=== PATIENT | female | born 1985 | race Caucasian/White ===

== ENCOUNTER → 2018-12-07 | Outpatient (CLI) | payer BC ==
--- NOTE | 2018-12-07 11:06 | RAD ---
Indication: Thyromegaly TECHNIQUE: Ultrasound thyroid COMPARISON: None FINDINGS: The isthmus measures 3 mm in thickness and is within normal limits. The right thyroid lobe measures 5.0 x 1.7 x 1.3 cm and is homogeneous in echogenicity without discrete nodules. The left thyroid lobe measures 5.1 x 1.7 x 1.3 cm and is homogeneous in echogenicity without discrete nodules. IMPRESSION: No discrete nodules. Electronically signed by: Steve Jones DO (12/07/2018 11:01 AM) [id number]
== END | disposition home or self-care (01) ==
LOC: US 08:34
PROVIDERS: ATTEND Family Medicine
DX: E04.9 Nontoxic goiter, unspecified (principal)
CPT/HCPCS: 76536

== ENCOUNTER → 2019-05-31 | Outpatient (CLI) | payer BC, OTHER ==
--- NOTE | 2019-05-31 09:08 | RAD ---
Examination: Ultrasound pelvis HISTORY: History of irregular periods COMPARISON: None available. FINDINGS: The uterus measures 9.6 x 5.8 x 2.6 cm. The right ovary measures 3.6 x 1.7 x 3.7 cm. The left ovary measures 3.9 x 3.3 x 2.9 cm. The endometrium measures 7 mm in thickness. There is a cystic structure identified in the right ovary measuring 1.3 cm and in the left ovary measuring 2.5 cm. Bilateral ovarian follicles identified. Nabothian cysts identified. Small amount of free fluid identified in the cul-de-sac. IMPRESSION: 1. 2.5 cm cyst or follicle identified in the left ovary. 2. Bilateral ovarian follicles. Electronically signed by: Benito Sosa MD (05/31/2019 9:05 AM) [id number]
== END | disposition home or self-care (01) ==
LOC: US 07:38
PROVIDERS: ATTEND Obstetrics & Gynecology
DX: N83.01 Follicular cyst of right ovary (principal); N83.02 Follicular cyst of left ovary
CPT/HCPCS: 76830; 76856

== ENCOUNTER → 2019-09-12 | Outpatient (CLI) | payer OTHER ==
[2019-09-14 11:08] LABS: DHEA 312 ng/dL (31-701)
== END | disposition home or self-care (01) ==
LOC: RAD 15:24
PROVIDERS: ATTEND Obstetrics & Gynecology
DX: L68.0 Hirsutism (principal)
CPT/HCPCS: 82626; 84402; 84403

== ENCOUNTER → 2019-10-09 | Outpatient (CLI) | payer OTHER ==
--- NOTE | 2019-10-09 10:12 | RAD ---
HYSTEROSALPINGOGRAM W/INJ HISTORY: Infertility COMPARISON: None TECHNIQUE: Patient was informed of the risks to include pain and infection. All questions were answered. Patient signed a written consent form for hysterosalpingogram. Patient was placed in a supine position on the fluoroscopy table. Speculum was inserted. Cervix was cleansed with Betadine solution. HSG catheter was inserted and secured with balloon inflation. Contrast was injected during fluoroscopic visualization, 3 cc of Omnipaque 180. Multiple spot fluoroscopic images were obtained. The balloon was deflated and catheter removed. Speculum was removed. There were no immediate complications. FINDINGS: No focal filling defect is identified of the uterus. Both fallopian tubes are patent. No fallopian tube dilatation. Free spill of contrast was noted within the peritoneum. Fluoroscopy time: Approximately 30 seconds, 6 images. IMPRESSION: 1. Normal hysterosalpingogram. Electronically signed by: Dennis Mancilla DO (10/09/2019 10:09 AM) [id number]
== END ==
LOC: RAD 08:03
PROVIDERS: ATTEND Obstetrics & Gynecology
DX: N97.9 Female infertility, unspecified (principal)
CPT/HCPCS: 58340; 74740

== ENCOUNTER → 2019-11-28 | Outpatient (CLI) | payer OTHER | END | disposition home or self-care (01) | LOC: LAB 08:07 | PROVIDERS: ATTEND Obstetrics & Gynecology | DX: N92.6 Irregular menstruation, unspecified (principal) | CPT/HCPCS: 36415; 84144 ==

== ENCOUNTER → 2019-12-05 | Outpatient (CLI) | payer OTHER ==
[2019-12-05 16:56] LABS: BASO # 0.1 x10^3/uL (0.0-0.2); BASO % 1 % (0-3); EOS # 0.3 x10^3/uL (0.0-0.7); EOS % 4 % (0-3); HEMATOCRIT 41.9 % (36.0-47.0); HEMOGLOBIN 13.7 g/dL (12.0-15.5); LYMPH # 2.4 x10^3/uL (1.0-4.8); LYMPH % 30 % (24-48); MEAN CORPUSCULAR HEMOGLOBIN 31 pg (25-35); MEAN CORPUSCULAR HGB CONC 33 g/dL (31-37); MEAN CORPUSCULAR VOLUME 93 fL (79-100); MONO # 0.7 x10^3/uL (0.0-1.1); MONO % 9 % (0-9); NEUT # 4.6 x10^3uL (1.8-7.7); NEUT % 56 % (31-73); PLATELET COUNT 248 x10^3/uL (140-400); RED CELL DISTRIBUTION WIDTH 13.9 % (11.5-14.5); WHITE BLOOD COUNT 8.1 x10^3/uL (4.0-11.0)
[2019-12-05 17:04] LABS: PREG TEST PT QUAL POSITIVE (NEG)
[2019-12-06 03:06] LABS: PROGESTERONE 10.2 ng/mL (.)
[2019-12-06 16:07] LABS: RUBELLA IGG ANTIBODY 1.11 index (Immune >0.99)
== END | disposition home or self-care (01) ==
LOC: LAB 15:09
PROVIDERS: ATTEND Obstetrics & Gynecology
DX: Z32.01 Encounter for pregnancy test, result positive (principal)
CPT/HCPCS: 36415; 84144; 84703; 85025; 86592; 86703; 86762; 86850; 86900; 86901; 87340

== ENCOUNTER → 2019-12-26 | Outpatient (CLI) | payer OTHER ==
--- NOTE | 2019-12-26 15:13 | RAD ---
EXAM: First Trimester OB Ultrasound INDICATION: Unsure of dates TECHNIQUE: Real-time first trimester obstetrical ultrasound was performed with permanent freeze-frame documentation. COMPARISON: None available FINDINGS: GESTATIONAL SAC: Gestational sac shape and amniotic fluid volume within normal limits. POLE: Unremarkable. Yolk sac visualized. CROWN RUMP LENGTH: 1.3 cm cm HEART RATE: 158 bpm PLACENTA: Too early to adequately assess. MATERNAL UTERUS: Measures 11.9 x 7.5 x 6.0 cm and appears normal. MATERNAL ADNEXA: Normal ovaries. Right ovary measures 1.3 x 2.3 x 2.9 cm. The left ovary measures 4.8 x 3.3 x 3.2 cm. A dominant left ovarian cyst measuring 2.2 cm is noted. AGE/DATES: Gestational Age by LMP: 7 weeks 6 days Gestational Age by US: 17 weeks 5 days EDC by LMP: August 07, 2020 EDC by US: August 08, 2020 IMPRESSION: Normal viable first trimester OB ultrasound. Estimated gestational age of 7 weeks 5 days and EDC of August 08, 2020. Electronically signed by: Christopher Moran MD (12/26/2019 3:10 PM) [facility]
== END | disposition home or self-care (01) ==
LOC: US 08:36
PROVIDERS: ATTEND Obstetrics & Gynecology
DX: Z34.91 Encounter for supervision of normal pregnancy, unspecified, first trimester (principal); Z3A.01 Less than 8 weeks gestation of pregnancy
CPT/HCPCS: 76801

== ENCOUNTER 2020-01-12 11:39 | Emergency (ER) | payer OTHER ==
[~2020-01-12] VITALS: Ht 165.1 cm; Wt 79.5 kg
--- NOTE | 2020-01-12 11:56 | PHYS DOC ---
Adult General Chief Complaint Chief Complaint: VAGINAL BLEEDING HPI HPI Patient is a 34-year-old female who is G2, P1 at approximately 10.1 weeks who presents secondary to complaint of "spotting" for the past 30 minutes. Patient reports a brownish-like discharge with some pink-tinged fluid in it. No increase in abdominal pain, no loss of vaginal fluid. Patient had an ultrasound done on December 26 and she had routine OB labs performed on December 03. She reportedly called her OB clinic and nursing staff told her to come to the emergency department immediately. Review of Systems Review of Systems Constitutional: Denies fever or chills [] Eyes: Denies change in visual acuity, redness, or eye pain [] HENT: Denies nasal congestion or sore throat [] Respiratory: Denies cough or shortness of breath [] Cardiovascular: No additional information not addressed in HPI [] GI: Denies abdominal pain, nausea, vomiting, bloody stools or diarrhea [] : Denies dysuria or hematuria [] Musculoskeletal: Denies back pain or joint pain [] Integument: Denies rash or skin lesions [] Neurologic: Denies headache, focal weakness or sensory changes [] Endocrine: Denies polyuria or polydipsia [] All other systems were reviewed and found to be within normal limits, except as documented in this note. Physical Exam Physical Exam Constitutional: Well developed, well nourished, no acute distress, non-toxic appearance. [] HENT: Normocephalic, atraumatic, bilateral external ears normal, oropharynx moist, no oral exudates, nose normal. [] Eyes: PERRLA, EOMI, conjunctiva normal, no discharge. [] Neck: Normal range of motion, no tenderness, supple, no stridor. [] Cardiovascular:Heart rate regular rhythm, no murmur [] Lungs & Thorax: Bilateral breath sounds clear to auscultation [] Abdomen: Bowel sounds normal, soft, no tenderness, no masses, no pulsatile masses. [] Skin: Warm, dry, no erythema, no rash. [] Back: No tenderness, no CVA tenderness. [] Extremities: No tenderness, no cyanosis, no clubbing, ROM intact, no edema. [] Neurologic: Alert and oriented X 3, normal motor function, normal sensory function, no focal deficits noted. [] Psychologic: Affect normal, judgement normal, mood normal. [] EKG EKG [] Radiology/Procedures Radiology/Procedures Transvaginal ultrasound ultrasound History: Bleeding for one day Comparison: 12/26/2019 Findings: Multiple transvaginal sonographic images of the pelvis are submitted. Cervix measured 4.1 cm in length. There is a single intrauterine gestational sac and fetus, visible yolk sac. No free fluid is demonstrated. There is posterior placenta, inferior margin which apparently covers the cervical os. Subjectively amniotic fluid volume is within normal limits. Left ovary measured 4.3 x 3.4 x 2.8 cm. There is anechoic cyst of the left ovary up to 2.5 x 2.3 x 2 cm. There is normal color flow of the left ovary. Right ovary measured 3.1 x 2.8 x 2.5 cm, normal color flow. Champ-rump length measurement of 3.63 cm corresponds with 10 weeks 4 days. Gestational sac dimension of 5.21 cm corresponds with 11 weeks 0 days. LMP age 10 weeks 2 days with estimated delivery date 08/07/2020. Adjusted ultrasound age 10 weeks 6 days with estimated delivery date of 08/03/2020. heart rate 162 bpm. Impression: 1. There is a single viable intrauterine , adjusted ultrasound age 10 weeks 6 days with estimated delivery date 08/03/2020. There is posterior placenta, apparently placenta previa with thin margin of the inferior placenta covering the cervical os. 2. There is left ovarian cyst.[] Course & Med Decision Making Course & Med Decision Making Pertinent Labs and Imaging studies reviewed. (See chart for details) 1159: I spoke to Dr. Wild's nursing staff who report Dr. Wild is out of the office for today and they recommend a hCG level and ultrasound. 1329: This patient's ultrasound reveals very mild placenta previa which likely explains her spotting. I have informed her that she needs to follow-up with her OB physician next week or call for further recommendations. Patient will likely outgrow this as she progresses in . Dragon Disclaimer Dragon Disclaimer This electronic medical record was generated, in whole or in part, using a voice recognition dictation system. Departure Departure: Impression: Primary Impression: First trimester bleeding Additional Impression: Placenta previa antepartum in first trimester Disposition: HOME, SELF-CARE Condition: STABLE Referrals: KARLIE WILD (PCP) Please follow-up next week or call your doctor for further recommendations Patient Instructions: - Placenta Previa Problem Qualifiers AJ PEACOCK DO Jan 12, 2020 11:56
--- NOTE | 2020-01-12 13:05 | RAD ---
Transvaginal ultrasound ultrasound History: Bleeding for one day Comparison: 12/26/2019 Findings: Multiple transvaginal sonographic images of the pelvis are submitted. Cervix measured 4.1 cm in length. There is a single intrauterine gestational sac and fetus, visible yolk sac. No free fluid is demonstrated. There is posterior placenta, inferior margin which apparently covers the cervical os. Subjectively amniotic fluid volume is within normal limits. Left ovary measured 4.3 x 3.4 x 2.8 cm. There is anechoic cyst of the left ovary up to 2.5 x 2.3 x 2 cm. There is normal color flow of the left ovary. Right ovary measured 3.1 x 2.8 x 2.5 cm, normal color flow. Rotonda-rump length measurement of 3.63 cm corresponds with 10 weeks 4 days. Gestational sac dimension of 5.21 cm corresponds with 11 weeks 0 days. LMP age 10 weeks 2 days with estimated delivery date 08/07/2020. Adjusted ultrasound age 10 weeks 6 days with estimated delivery date of 08/03/2020. heart rate 162 bpm. Impression: 1. There is a single viable intrauterine , adjusted ultrasound age 10 weeks 6 days with estimated delivery date 08/03/2020. There is posterior placenta, apparently placenta previa with thin margin of the inferior placenta covering the cervical os. 2. There is left ovarian cyst. Electronically signed by: Familia Johansen MD (01/12/2020 1:02 PM) [id number]
[2020-01-12 16:15] VITALS: BP 123/60
== END 2020-01-12 16:15 | disposition home or self-care (01) ==
LOC: ER 11:39
DX: O44.11 Complete placenta previa with hemorrhage, first trimester (principal); Z3A.10 10 weeks gestation of pregnancy
CPT/HCPCS: 36415; 36430; 76817; 84702; 86850; 86900; 86901; 99285; J2791

== ENCOUNTER → 2021-11-03 | Outpatient (CLI) | payer BC, OTHER ==
--- NOTE | 2021-11-04 14:25 | RAD ---
US THYROID History: Reason: ENLARGED THYROID / Spl. Instructions: / History: Comparison: None. Technique: Multiple grayscale and color Doppler images of the thyroid gland were obtained. Findings: Right thyroid lobe: 4.6 x 1.6 x 1.4 cm. Homogeneous echotexture. Left thyroid lobe: 4.6 x 1.8 x 1.2 cm. Homogeneous echotexture. Isthmus: 0.3 cm. No discrete nodule identified. IMPRESSION: 1. Unremarkable thyroid ultrasound. Electronically signed by: Dennis Mancilla DO (11/04/2021 2:22 PM) [facility]
== END ==
LOC: US 14:36
PROVIDERS: ATTEND Physician Assistant Medical
DX: E04.9 Nontoxic goiter, unspecified (principal)
CPT/HCPCS: 76536